=== PATIENT | male | born 1970 | race Caucasian/White ===

== ENCOUNTER → 2018-03-05 11:25 | Outpatient (CLI) | payer MEDICAID, SELFPAY ==
--- NOTE | 2018-03-05 14:17 | STRESSREP ---
Stress Test Report Treadmill EKG report: Resting EKG: Normal sinus rhythm, normal axis, normal intervals, no evidence of previous myocardial infarction. Treadmill EKG: The patient exercise according to a Ford protocol for 7 minutes and 0 seconds achieving a maximum workload of 8.50M ETS. Resting heart rate was initially 71 beats a minute davion to maximum of 166 beats a minute which represents 94% of the maximal age-predicted heart rate. Resting blood pressure was 110/82 and davion to maximum 200/90. Test was terminated due to the attainment of target heart rate and leg discomfort. During exercise the patient's heart rate increased as expected. Patient had subtle upsloping ST segment depression at peak exercise which did not reach criteria for ischemia. This quickly resolved by 1 minute into recovery. Rare PVC noted during recovery. Conclusions: Normal adequate treadmill EKG. Negative for ischemia by EKG criteria. No anginal symptoms noted. Rare PVC noted. Hypertensive blood pressure response to exercise. Average exercise capacity for age. Patient tolerated procedure well. No complications.
== END ==
PROVIDERS: Family Provider Student in an Organized Health Care Education/Training Program; PCP Student in an Organized Health Care Education/Training Program; Visit Provider Internal Medicine Cardiovascular Disease
DX: R00.2 Palpitations (principal); I25.10 Atherosclerotic heart disease of native coronary artery without angina pectoris
CPT/HCPCS: 93017